=== PATIENT | male | born 1955 | race Caucasian/White ===

== ENCOUNTER 2021-12-19 10:51 | Outpatient (CLI) | payer OTHER | END 2021-12-19 10:52 | disposition home or self-care (01) | LOC: BICCT 10:51 | PROVIDERS: ATTEND Surgery | DX: M48.02 Spinal stenosis, cervical region (principal); M47.813 Spondylosis without myelopathy or radiculopathy, cervicothoracic region; M47.811 Spondylosis without myelopathy or radiculopathy, occipito-atlanto-axial region; M47.12 Other spondylosis with myelopathy, cervical region; M47.22 Other spondylosis with radiculopathy, cervical region | CPT/HCPCS: 72125 ==

== ENCOUNTER 2022-02-02 20:00 | Emergency (ER) | payer SELFPAY | END 2022-02-02 22:33 | disposition home or self-care (01) | LOC: ERS 20:00 | DX: G89.18 Other acute postprocedural pain (principal); I10 Essential (primary) hypertension | CPT/HCPCS: 99283 ==